=== PATIENT | female | born 1965 | race Caucasian/White ===

== ENCOUNTER → 2020-04-21 | Outpatient (CLI) | payer OTHER | END | disposition home or self-care (01) | LOC: SONOGRAMA 10:47 | PROVIDERS: ATTEND Internal Medicine | DX: N39.0 Urinary tract infection, site not specified (principal) ==

== ENCOUNTER 2020-04-25 06:00 | Day surgery (SDC) | payer OTHER | END 2020-04-25 20:00 | disposition home or self-care (01) | LOC: CIR.AMB | PROVIDERS: ATTEND Surgery | DX: D05.11 Intraductal carcinoma in situ of right breast (principal); Z41.1 Encounter for cosmetic surgery; Z90.11 Acquired absence of right breast and nipple; Z20.828 Contact with and (suspected) exposure to other viral communicable diseases ==

== ENCOUNTER 2020-07-04 08:25 | Day surgery (SDC) | payer OTHER | END 2020-07-04 16:30 | disposition home or self-care (01) | LOC: CIR.AMB 08:25 | PROVIDERS: ATTEND Plastic Surgery | DX: N65.1 Disproportion of reconstructed breast (principal); Z90.11 Acquired absence of right breast and nipple; Z20.828 Contact with and (suspected) exposure to other viral communicable diseases | CPT/HCPCS: 19342; 19366; 19316; C1789 ==